=== PATIENT | female | born 1970 | race Caucasian/White ===

== ENCOUNTER 2021-03-31 15:56 | Emergency (ER) | payer OTHER ==
[~2021-03-31] VITALS: Ht 160 cm; Wt 73.0 kg
[~2021-03-31 15:56] MED LIST: AMERGE1 MG; CIPROFLOXIN HC2.5 M1 OPHTHALMIC; COMPAZINE10 M1 PO; COMPAZINE10 MG PO; FLEXERIL PO; HYDROCODON-ACE1 EAC7 PO; LIORESAL 10 MG10 MG PO; MAXALT MLT10 MG; NARATRIPTAN HC2.5 MG PO; NARATRIPTAN2.5 MG PO; NORTRIPTYLINE H25 M3 PO; PAMELOR50 MG; PHENERGAN 25 MG25 M1 PO; PREDNISONE 20 M20 M1 PO; PROMETHAZINE HC25 M1 PO; SYNTHROID75 MCG PO; TOLTERODINE TART4 MG PO; TOPAMAX100 MG PO; TOPAMAX50 MG PO; WELLBUTRIN XL150 M2 PO; ZOFRAN ODT4 MG PO; ZOFRAN4 MG; ZOFRAN4 MG PO; [UNRECOGNIZED DRUG - OTHER]
[2021-03-31 16:22] LABS: ABSOLUTE BASOPHILS 0.1 thou/uL (0.0-0.2); ABSOLUTE LYMPHOCYTES 2.7 thou/uL (0.8-5.3); ABSOLUTE MONOCYTES 0.9 thou/uL (0.0-1.2); ABSOLUTE NEUTROPHILS 7.7 thou/uL (1.6-8.1); BASOPHILS 0.8 %; EOSINOPHILS 0.3 %; HEMATOCRIT 41.2 % (37.0-47.0); HEMOGLOBIN 14.4 gm/dL (12.0-15.0); LYMPHOCYTES 23.6 %; MCH 29.4 pg (26.0-34.0); MCHC 34.9 g/dL (28.0-37.0); MCV 84.2 fL (80.0-100.0); MONOCYTES 7.8 %; MPV 7.2 fl. (7.2-11.1); NUCLEATED RBCS 0 /100WBC; PLATELET COUNT* 375 thou/uL (150-400); POLYS 67.5 %; WBC 11.4 thou/uL (4.0-11.0)
[2021-03-31 16:32] LABS: CALCIUM 9.1 mg/dL (8.5-10.1); CREATININE 1.1 mg/dL (0.6-1.3); POTASSIUM 4.2 mmol/L (3.5-5.1)
[2021-03-31 16:34] LABS: URINE BILIRUBIN NEGATIVE (Negative); URINE BLOOD NEGATIVE (Negative); URINE CLARITY CLEAR; URINE COLOR YELLOW; URINE GLUCOSE-RANDOM NEGATIVE (Negative); URINE KETONES NEGATIVE (Negative); URINE LEUKOCYTES NEGATIVE (Negative); URINE NITRITE NEGATIVE (Negative); URINE PROTEIN NEGATIVE (Negative); URINE SPECIFIC GRAVITY 1.015 (1.005-1.030); URINE UROBILINOGEN 0.2 E.U./dl (0.2-1.0)
[2021-03-31 16:41] LABS: ALBUMIN 3.7 g/dL (3.4-5.0); TOTAL BILIRUBIN 0.3 mg/dL (<0.1-1.0); TOTAL PROTEIN 7.3 g/dL (6.4-8.2)
[2021-03-31] MEDS ORDERED: ZOFRAN ODT4 MG PO (16:59)
[2021-03-31 17:17] VITALS: BP 121/70
== END 2021-03-31 17:18 | disposition home or self-care (01) ==
LOC: M.ERS 15:56
PROVIDERS: Physician Assistant
DX: R11.2 Nausea with vomiting, unspecified (principal); E86.0 Dehydration; R50.9 Fever, unspecified; G43.909 Migraine, unspecified, not intractable, without status migrainosus; E07.9 Disorder of thyroid, unspecified; F17.210 Nicotine dependence, cigarettes, uncomplicated; Z90.711 Acquired absence of uterus with remaining cervical stump; Z98.890 Other specified postprocedural states; Z79.899 Other long term (current) drug therapy; Z88.0 Allergy status to penicillin; Z88.8 Allergy status to other drugs, medicaments and biological substances